=== PATIENT | male | born 1945 | race Caucasian/White ===

== ENCOUNTER → 2016-07-11 | Outpatient (CLI) | payer OTHER, MEDICARE ==
[~2016-07-11] VITALS: Ht 177.8 cm; Wt 83.9 kg
[~2016-07-11] MED LIST: CENTRUM SILVER1 EAC4 PO; CLEOCIN HCL300 MG PO; HYDROCODON-ACE1 EAC7; KEFLEX125 MG/5 M; KEFLEX500 MG PO; PROPRANOLOL 1010 MG PO; PROSCAR 5MG TABL5 MG PO; VIMOVO 375-201 EACH
--- NOTE | ~2016-07-11 | P ---
[facility] [place] [address] PROCEDURE REPORT Name: KEREN BUCKNER Room #: [facility] [id number] Admission: 07/11/16 Attend Phys: Donald Torres Discharge: Date of : 49 Report #: [id number] THIS REPORT FOR: //name// CC: Donald Martienz DATE OF SERVICE: 07/11/2016 PROCEDURE PERFORMED: Colonoscopy with polypectomies. HISTORY OF PRESENT ILLNESS: The patient is a 71-year-old male who presents today for routine screening colonoscopy. Denies any symptoms. No family history of colon cancer. DESCRIPTION OF PROCEDURE: The risks and benefits of the procedure were explained to the patient, those risks including but not limited to bleeding, perforation, the risk of sedation. He understood these risks and gave informed consent. Sedation was given using propofol per anesthesia. Next, a digital rectal exam was initially performed, which was normal. Next, using a standard Fujinon colonoscope, the scope was placed in the patient's anus and advanced under direct vision to the cecum. The overall prep was excellent. The cecum and ileocecal valve were normal in appearance. In the proximal ascending colon, a 6 mm sessile polyp was noted. This was removed by snare cautery, otherwise normal. Transverse colon was normal. Diverticulosis was noted in the descending and sigmoid colon, most of which was in the sigmoid colon, no evidence of inflammation, otherwise normal. The proximal and mid rectal mucosa was normal. In the distal rectum, there was a mild erythema, this may be secondary to prep effect; however, biopsies were obtained. On retroflexion, no other abnormalities were noted. The scope was then withdrawn and the procedure terminated. The patient tolerated the procedure well. IMPRESSION: 1. Ascending colon polyp. 2. Left-sided diverticulosis. 3. Mild erythema in the distal rectum. 4. Otherwise, normal colonoscopy. RECOMMENDATIONS: 1. Await biopsy results. 2. Repeat colonoscopy in [address] [address] PROCEDURE REPORT Name: KEREN BUCKNER Room #: REG [facility] Benitez#: [id number] Admission: 07/11/16 Attend Phys: Donald Torres Discharge: Date of : 49 Report #: [id number] Thank you for allowing me to participate in his care. <ELECTRONICALLY SIGNED> By: Donald Johnston MD 07/13/16 0820 [id number] [id number] Donald Johnston MD /nt
--- NOTE | ~2016-07-11 | S ---
[facility] [place] [address] SURGICAL PATH RPT PROCEDURE Name: KEREN EVANS Room #: REG [facility].#: [id number] Admission: 07/11/16 Date of : 49 Discharge: Report #: [id number] Path Case #: [id number] PATHOLOGY REPORT COLLECTION DATE: 07/11/2016 RECEIVED DATE: 07/11/2016 SUBMITTING PHYS: Dr. Donald Johnston OTHER PHYS: SPECIMEN(S) RECEIVED: A.Polyp-ascending colon B.Rectal irritation * * * * * * * * * * * * FINAL DIAGNOSIS: A. Polyp, ascending colon, endoscopic biopsy: - Superficial fragments of a tubulovillous adenoma. - Negative for high grade dysplasia. B. Large intestine, rectal irritation, rule out colitis, endoscopic biopsy:- Mild focal nonspecific acute inflammation. (Please see comment) - Negative for dysplasia or malignancy. COMMENT: Part B: Examination shows a rare scattered focus of acute cryptitis. Surface epithelial inflammation, ulceration, or fibrinopurulent material is not identified. The lamina propria shows scattered macrophages along with mixed cellularity. Findings may be suggestive of a resolved episode of colitis or injury, bowel preparation, or a resolving area of solitary rectal ulcer or rectal prolapse. There is no dysplasia or malignancy present. Please correlate clinically. (IUV:csd; d/t: 07/12/2016) PATHOLOGIST: Chacha Lamas M.D. REPORT ELECTRONICALLY SIGNED BY: Chacha Lamas M.D. DATE/TIME: 07/12/2016 16:14 * * * * * * * * * * * * GROSS PATHOLOGY: A. Received in formalin labeled "Keren Evans, polyp ascending colon," are 5 segments of ace soft tissue measuring 0.8 x 0.6 x 0.4 cm in aggregate dimensions and ranging from 0.3 to 0.6 cm in maximum dimension. The specimen is submitted entirely in cassette A1. B. Received in formalin labeled "Keren Evans, rectal irritation, rule out colitis," are 3 segments of ace soft tissue measuring 0.5 x 0.4 x 0.2 cm in aggregate dimensions and ranging from 0.3 to 0.[address] [address] SURGICAL PATH RPT PROCEDURE Name: KEREN EVANS Room #: REG [facility].#: [id number] Admission: 07/11/16 Date of : 49 Discharge: Report #: [id number] Path Case #: [id number] in maximum dimension. The specimen is submitted entirely in cassette B1. (KAH; 07/11/2016) CLINICAL HISTORY: Colon polyps, rectal irritation, rule out colitis INITIAL CPT CODE(S): A; 02860 B; 67362 Professional services performed by [facility] at [address] , [place] [address] Technical services performed by [facility] at [address] [place] [address]., [address], [place] [address]. [facility] [address] [address] PHONE: [phone] DIRECTOR: Brando Goel M.D. * * * END OF REPORT * * *
== END ==
LOC: GI 07:22
DX: Z12.11 Encounter for screening for malignant neoplasm of colon (principal); D12.2 Benign neoplasm of ascending colon; K57.30 Diverticulosis of large intestine without perforation or abscess without bleeding; G47.33 Obstructive sleep apnea (adult) (pediatric); Z87.891 Personal history of nicotine dependence
CPT/HCPCS: 62110; 62900